=== PATIENT | female | born 1995 | race Caucasian/White ===

== ENCOUNTER 2018-04-09 17:49 | Inpatient (IN) | payer OTHER ==
[~2018-04-09] VITALS: Ht 157.5 cm; Wt 87.0 kg
[~2018-04-09 17:49] MED LIST: MACROBID 100 M100 MG PO; PYRIDIUM200 MG PO; SEPTRA DS TABL1 EACH PO; TERBINAFINE HC250 MG PO; TRAZODONE HCL50 MG PO; TYLENOL WITH C1 EACH PO
--- NOTE | 2018-04-09 23:01 | PR ---
[facility] [address] [facility] [place], [place] [address] Signed Progress Notes IP Datetime Report Generated by ALTAGRACIA: 04/09/2018 23:01 PROGRESS NOTES: [id number] Impression: Normal progression of labor Procedures: Artificial ROM; Sterile Vag Exam Plan: Continue present management Informed Consent Obtain: Vaginal Delivery; Risks, Benefits and Alternatives Discussed VITAL SIGNS: [id number] Vital Signs: Reviewed; Within Normal Limits EXAM: [id number] Dilatation: 9.0 Effacement: 100 Station: -2 Uterine Contractions: q 2 to 3 min MEMBRANES: [id number] Membrane Status: Intact ROM Note: AROM with moderate amount clear fluid Comments: Comfortable after intrathecal. Progressing well. Will continue. Fetus A: [id number] FHR Baseline: 150 Variability: Moderate 6-25bpm Accelerations: 10X10 Decelerations: Variable FHR Category: Category II Presentation: Vertex Comments on Fetus A: overall reassuring but will continue close observation Fetus B: [id number] Signing Physician: India Simpson MD Copies: ~ *Electronically Signed* 04/09/18 2300 INDIA SIMPSON MD PATIENT NAME: PETEY AL PROGRESS NOTE DATE OF : 89 PHYSICIAN: INDIA SIMPSON MD RPT #: [id number] REPORT IS CONFIDENTIAL AND NOT TO BE RELEASED WITHOUT AUTHORIZATION
--- NOTE | 2018-04-10 12:18 | PR ---
[facility] [address] [facility] [place] [address] Signed PP Progress Notes Datetime Report Generated by ALTAGRACIA: 04/10/2018 12:18 SUBJECTIVE: [id number] Pain: Within normal limits Vital Signs: [id number] Vital Signs: Reviewed; Within Normal Limits EXAM: [id number] Cardiovascular: Not Done Respiratory: Not Done Abdomen/Uterus: Abnormal Lochia: Normal Vulva/Perineum: Not Done Breasts: Not Done CVA Tenderness: Not Done Extremities: Normal Incision: Not Applicable Progress: Normal Exam Comments: Fundus firm, NT @ U-1. H/H 11//35.5, WBC 23, plat 173k IMPRESSION/PLAN/PROCEDURES: [id number] Impression: Normal progression Plan: Continue present management Procedures: None Progress Notes: Doing well. Will continue present regimen. Signing Physician: India Simpson MD Copies: ~ *Electronically Signed* 04/10/18 1218 INDIA SIMPSON MD PATIENT NAME: PETEY AL PROGRESS NOTE DATE OF : 95 PHYSICIAN: INDIA SIMPSON MD RPT #: [id number] REPORT IS CONFIDENTIAL AND NOT TO BE RELEASED WITHOUT AUTHORIZATION
--- NOTE | 2018-04-11 12:04 | PR ---
[facility] [address] [facility] [place] [address] Signed PP Progress Notes Datetime Report Generated by CPN: 04/11/2018 12:04 SUBJECTIVE: [id number] Pain: Within normal limits Vital Signs: [id number] Vital Signs: Reviewed; Within Normal Limits EXAM: [id number] Cardiovascular: Not Done Respiratory: Not Done Abdomen/Uterus: Abnormal Lochia: Normal Vulva/Perineum: Not Done Breasts: Not Done CVA Tenderness: Not Done Extremities: Normal Incision: Not Applicable Progress: Normal Exam Comments: Fundus firm, NT @ U-1. IMPRESSION/PLAN/PROCEDURES: [id number] Impression: Normal progression Plan: Discharge Procedures: None Progress Notes: Doing well. She can be D/Cd to boarder status. Signing Physician: India Simpson MD Copies: ~ *Electronically Signed* 04/11/18 1204 INDIA SIMPSON MD PATIENT NAME: PETEY AL PROGRESS NOTE DATE OF : 95 PHYSICIAN: INDIA SIMPSON MD RPT #: [id number] REPORT IS CONFIDENTIAL AND NOT TO BE RELEASED WITHOUT AUTHORIZATION
== END 2018-04-11 14:15 | disposition home or self-care (01) | DRG 807 ==
LOC: FBCO 17:49 → FBC 20:46
PROVIDERS: ADMIT Obstetrics & Gynecology
PROC: 10E0XZZ Delivery of Products of Conception, External Approach (ICD-10-PCS; principal; 2018-04-09)
PROC: 10907ZC Drainage of Amniotic Fluid, Therapeutic from Products of Conception, Via Natural or Artificial Opening (ICD-10-PCS; 2018-04-09)
PROC: 00HU33Z Insertion of Infusion Device into Spinal Canal, Percutaneous Approach (ICD-10-PCS; 2018-04-09)
PROC: 3E0R3BZ Introduction of Anesthetic Agent into Spinal Canal, Percutaneous Approach (ICD-10-PCS; 2018-04-09)
DX: O99.824 Streptococcus B carrier state complicating childbirth (principal); Z37.0 Single live birth; Z3A.37 37 weeks gestation of pregnancy
CPT/HCPCS: 01960; 36415; 59025; 85027; 99213; J0690; J2590; J2795; J3010; J7120

== ENCOUNTER 2020-01-07 14:55 | Emergency (ER) | payer OTHER ==
[~2020-01-07] VITALS: Ht 157.5 cm; Wt 87.1 kg
[2020-01-07] MEDS ORDERED: MIRENA1 EACH ID (15:10)
[2020-01-07] MEDS ORDERED: ONDANSETRON ODT8 MG PO (18:04)
[2020-01-07] MEDS ORDERED: PERCOCET 5-3251 EACH PO (18:04)
== END 2020-01-07 18:14 | disposition home or self-care (01) ==
LOC: ED 14:55
DX: R10.2 Pelvic and perineal pain (principal); Z97.5 Presence of (intrauterine) contraceptive device; F32.9 Major depressive disorder, single episode, unspecified; F41.9 Anxiety disorder, unspecified; Z88.5 Allergy status to narcotic agent; Z88.0 Allergy status to penicillin; Z79.899 Other long term (current) drug therapy
CPT/HCPCS: 76775; 76830; 76856; 80053; 81001; 83690; 83735; 84703; 85025; 87491; 87591; 96375; 99284-25; J1885; J2405

== ENCOUNTER 2024-04-01 18:46 | Emergency (ER) | payer OTHER ==
[~2024-04-01] VITALS: Ht 157.5 cm; Wt 62.1 kg
[~2024-04-01 18:46] MED LIST changes: +MIRENA1 EACH ID; +ONDANSETRON ODT8 MG PO; +PERCOCET 5-3251 EACH PO
[2024-04-01 20:13] LABS: BILIRUBIN, URINE NEGATIVE (negative); BLOOD/HGB, URINE SMALL (Negative); KETONE, URINE TRACE (Negative); LEUK ESTERASE, URINE MODERATE (negative); NITRITE, URINE POSITIVE (negative)
[2024-04-01] MEDS ORDERED: SODIUM CHLORIDE 0.9% 1,000 ML IV PRN (20:15)
[2024-04-01] MEDS ORDERED: ondansetron HCL 4 MG/2 ML VIAL IV ONE (20:15)
[2024-04-01 20:22] LABS: BACTERIA, URINE 3+ /hpf (negative); CASTS, URINE NONE SEEN \\lpf; COLLECTION TYPE, URINE CLEAN CATCH; CRYSTALS, URINE NONE SEEN (0-1+); EPITHELIAL CELLS, URINE SQUAMOUS 1+ /lpf (0-1+); REFLEX CULTURE, URINE Yes (No); WHITE BLOOD CELLS, URINE >50 /HPF (0-5)
[2024-04-01 20:37] LABS: BASOPHILS 0.3 % (0-2); EOSINOPHILS 0.1 % (0-6); HEMATOCRIT 43.6 % (35.0-50.0); HEMOGLOBIN 14.6 g/dL (12.0-18.0); LYMPHOCYTES 10.2 % (24-44); MCH 30.6 (27-36); MCHC 33.6 g/dl (30-36); MCV 91.1 fl (81-99); MONOCYTES 6.7 % (0-12); NEUTROPHILS 82.7 % (39-80); PLATELET COUNT 271 K/uL (140-440); RBC 4.79 M/ul (4.3-5.7); RDW 12.7 (10.5-15.0)
[2024-04-01 20:52] LABS: ALBUMIN 3.9 g/dL (3.4-5.0); ALBUMIN/GLOBULIN RATIO 0.85 (1.1-2.4); ANION GAP 13.1 (7-21); BILIRUBIN, TOTAL 1.5 ng/dL (0.2-1.0); BUN/CREATININE RATIO 14.11 (6.0-28.6); CALCIUM 9.2 mg/dL (8.5-10.1); CREATININE, SERUM 0.85 mg/dL (0.55-1.02); POTASSIUM 4.1 mmol/L (3.5-5.1); PROTEIN, TOTAL 8.5 g/dL (6.4-8.2)
[2024-04-01] MEDS ORDERED: CEPHALEXIN500 M1 PO (22:33)
[2024-04-01] MEDS ORDERED: CEPHALEXIN MONOHYDRATE 500 MG HOME.PACK PO ONE (22:45)
[2024-04-01 23:05] VITALS: BP 131/97
== END 2024-04-01 23:05 | disposition home or self-care (01) ==
LOC: ED 18:46
PROVIDERS: Emergency Medicine
DX: N39.0 Urinary tract infection, site not specified (principal); M54.50 Low back pain, unspecified; Z88.8 Allergy status to other drugs, medicaments and biological substances; Z88.0 Allergy status to penicillin; Z79.899 Other long term (current) drug therapy
CPT/HCPCS: 36415; 74176; 80053; 81001; 83690; 84703; 85025; 87088; 96374; 99284-25; A9270; J2405; J7030

== ENCOUNTER 2024-08-12 06:57 | Emergency (ER) | payer OTHER | END 2024-08-12 08:46 | disposition home or self-care (01) | LOC: ED 06:57 | DX: M79.602 Pain in left arm (principal); Z88.5 Allergy status to narcotic agent ==